=== PATIENT | female | born 1970 | race African-American/Black ===

== ENCOUNTER → 2017-02-04 | Outpatient (CLI) | payer OTHER ==
[~2017-02-04] MED LIST: ADVIL100 M2 PO; BACTRIM DS TAB1 EACH PO; PERCOCET 5-3251 EACH PO
== END ==
LOC: RAD 03:25
DX: Z12.31 Encounter for screening mammogram for malignant neoplasm of breast (principal)

== ENCOUNTER → 2018-02-07 | Outpatient (CLI) | payer OTHER | LOC: RAD 02:09 | DX: Z12.31 Encounter for screening mammogram for malignant neoplasm of breast (principal) ==

== ENCOUNTER 2018-12-07 15:08 | Emergency (ER) | payer OTHER ==
[~2018-12-07] VITALS: Ht 165.1 cm; Wt 67.6 kg
[2018-12-07] MEDS ORDERED: NORFLEX100 MG PO (16:36)
[2018-12-07 17:05] VITALS: BP 119/74
== END 2018-12-07 16:56 | disposition home or self-care (01) ==
LOC: ER 15:08
DX: S16.1XXA Strain of muscle, fascia and tendon at neck level, initial encounter (principal); V89.2XXA Person injured in unspecified motor-vehicle accident, traffic, initial encounter; Y92.89 Other specified places as the place of occurrence of the external cause; Y93.89 Activity, other specified; Y99.8 Other external cause status

== ENCOUNTER → 2018-12-15 | Outpatient (CLI) | payer OTHER ==
[~2018-12-15] MED LIST changes: +NORFLEX100 MG PO
== END ==
LOC: RAD 15:57
DX: S13.8XXA Sprain of joints and ligaments of other parts of neck, initial encounter (principal); X58.XXXA Exposure to other specified factors, initial encounter; Y93.89 Activity, other specified; Y92.89 Other specified places as the place of occurrence of the external cause; Y99.8 Other external cause status

== ENCOUNTER → 2019-03-17 | Outpatient (CLI) | payer OTHER | LOC: RAD 01:23 | DX: Z12.31 Encounter for screening mammogram for malignant neoplasm of breast (principal) ==

== ENCOUNTER → 2019-06-30 | Outpatient (CLI) | payer OTHER | LOC: CAT 12:05 | DX: Z13.6 Encounter for screening for cardiovascular disorders (principal); E78.00 Pure hypercholesterolemia, unspecified; I25.10 Atherosclerotic heart disease of native coronary artery without angina pectoris ==

== ENCOUNTER → 2020-06-06 | Outpatient (CLI) | payer OTHER | LOC: BC 08:45 → EDSTATUS 15:35 | PROVIDERS: ATTEND Neuromusculoskeletal Medicine & OMM | DX: Z12.31 Encounter for screening mammogram for malignant neoplasm of breast (principal) ==

== ENCOUNTER → 2021-06-17 | Outpatient (CLI) | payer OTHER | LOC: BC 09:52 | PROVIDERS: ATTEND Obstetrics & Gynecology | DX: Z12.31 Encounter for screening mammogram for malignant neoplasm of breast (principal); N64.89 Other specified disorders of breast ==